=== PATIENT | male | born 1940 | race Caucasian/White ===

== ENCOUNTER → 2017-07-09 | Outpatient (CLI) | payer BC ==
--- NOTE | 2017-07-09 10:42 | RADRPT ---
PROCEDURE: XR Pelvis and left Hip. CLINICAL INDICATION: Pain TECHNIQUE: AP of the pelvis and frog-leg view of the left hip are available for review. COMPARISON: 01/03/2016 FINDINGS: There is left hip total arthroplasty in place unchanged. No evidence of hardware failure.. No acute fracture or dislocation is seen. The right hip shows mild osteoarthritic narrowing. No radiopaque f oreign body is identified. The osseous mineralization is normal. The sacroiliac joints, as visualize d, are grossly unremarkable. 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 IMPRESSION: Left hip arthroplasty unchanged. No acute fracture or dislocation. RPTAT: QQ .Andrea Olsen MD, MD Date Time Electronically viewed and signed by .Andrea Olsen MD, on 07/09/2017 10:42 .L/
--- NOTE | 2017-07-09 15:09 | HKNOTE ---
DATE OF SERVICE: 07/09/2017 MAIN COMPLAINT: Pain in the left hip. HISTORY OF MAIN COMPLAINT: The patient is a 76-year-old male who was last seen in my office on 06/21. At that time, he was complaining about pain around the left greater trochanter. He did not have any back pain. He did have a history of lower back pain. He was referred for an MRI scan of his lumbar spine which he did not obtain. He now comes in complaining basically of the same symptom s. PRESENT COMPLAINTS: The pain in the left hip is localized around the left buttocks and somewhat enc roaching over the left greater trochanter. His main pain is in the left buttocks. He gets pain ori ry day. He is not taking any medications for the pain. He does not get any groin pain whatsoever. He can walk as far as he likes. He does not use a walking aid. He is not taking any pain medicatio ns. The pain does not radiate below the mid-thigh level posteriorly. He has no numbness or tingling in the leg. He can walk as far as he likes. He does not use a walking aid. He is not limping. His leg lengths feel equal. He can clip his toenails and tie his shoelaces. PAST ORTHOPEDIC HISTORY: Previous orthopedic operations: 1. Left shoulder replacement, one and then the other. 2. Left hip replacement. PRIOR CORTISONE INTAKE: Into his right shoulder on occasion. OTHER JOINT PROBLEMS: Shoulder pain. PRIOR INJURIES TO HIPS OR KNEES: None. 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 He will be teaching part-time. PHYSICAL EXAMINATION: GENERAL: Extremely fit-looking, youthful 76-year-old male. As I noted previously, vital signs wer e not obtained today for some reason. His gait is normal. He walks without a walking aid. HIP EXAMINATION: Both hips have full range of motion without pain. There is absolutely no tenderne ss anywhere around either hip joint, most specifically none in the left greater trochanter. NEUROLOGICAL EXAMINATION: Deep tendon reflexes in the right knee plus, left knee plus, right ankle plus, left ankle plus. Straight leg raising is negative on the right at 80 degrees, positive on the left at 70 degrees. IMAGING: Plain x-rays of his pelvis and left hip obtained today show that he has had an AML type of hip femoral component. This component appears to be still well attached to the bone. 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 It does not appear to be focal and does not seem to indicate loosening of the component. The Femoral head symmetrically in the plastic acetabular liner with some possible wear superiorly. There is some osteolysis around the superior and medial aspect of the acetabular component which is not of a great degree but is worrisome (this was shown to the patient and he is advised that there i s no doubt that he will need to have some form of revision of the left hip replacement sometime in t he near future). DIAGNOSIS: Symptoms suggestive of radicular pain. MANAGEMENT: The patient is being sent for an MRI scan of his lumbar spine. He will be seen again t hereafter for reevaluation. FINAL DIAGNOSES: 1. Status post left total hip replacement. 2. Left lumbar radiculopathy. Dictated By: STARLA MORALES/[place] Conf#: [id number] DID#: [id number]
== END | disposition home or self-care (01) ==
LOC: HKI 09:53
DX: M54.16 Radiculopathy, lumbar region (principal); Z96.642 Presence of left artificial hip joint; Z96.612 Presence of left artificial shoulder joint
CPT/HCPCS: 73502; G0463